=== PATIENT | female | born 1950 | race Caucasian/White ===

== ENCOUNTER 2019-04-29 08:04 | Day surgery (SDC) | payer BC ==
[~2019-04-29 08:04] MED LIST: ACETAMINOPHEN 1,000 MG/100 ML BTL IVPB ONE; FAMOTIDINE 20MG TABLET PO ONE; METOCLOPRAMIDE 10 MG TABLET PO ONE; SCOPOLAMINE 1 PATCH TDSY TD ONE
[2019-04-29] MEDS ORDERED: ONDANSETRON HCL IV 4 MG/2 ML VIAL IVP ONE (08:05)
[2019-04-29] MEDS ORDERED: KETOROLAC 30 MG/ML VIAL IVP ONE (08:05)
[2019-04-29] MEDS ORDERED: *PACU ONLY* KETAMINE HCL 10 MG/ML (20ML) VIAL IV ONE (08:05)
[2019-04-29] MEDS ORDERED: DEXAMETHASONE 4 MG/ML 1ML VIAL IVP ONE (08:05)
[2019-04-29] MEDS ORDERED: FENTANYL PF 100MCG/2ML VIAL IV ONE (08:05)
[2019-04-29] MEDS ORDERED: DIPHENHYDRAMINE HCL 50 MG/ML VIAL IVP ONE (08:05)
[2019-04-29] MEDS ORDERED: MIDAZOLAM HCL 2MG/2ML VIAL IV ONE (08:05)
[2019-04-29] MEDS ORDERED: PROPOFOL 10 MG/ML VIAL IV ONE (08:05)
[2019-04-29] MEDS ORDERED: RINGERS SOLUTION,LACTATED 1,000 ML IV ONE (08:50)
[2019-04-29] MEDS ORDERED: BUPIVACAINE 0.25% W/EPI MPF 30ML VIAL SQ ONE ×2 (09:52)
--- NOTE | 2019-04-30 06:01 | Operative Note ---
DATE OF SURGERY: 04/29/2019 SURGEON: Dave Foster DO PREOPERATIVE DIAGNOSIS: Back mass, 5 cm in size. POSTOPERATIVE DIAGNOSIS: Back mass, 5 cm in size. OPERATION: Wide excision of a back mass 5 cm into the subcu. PROCEDURE: The patient is a 68-year-old female who was brought to the operating room and placed in a supine position. She was rotated into left lateral position. Her back was prepped and draped in sterile fashion. Local with IV sedation was given per department of anesthesia. Thereafter, consent was signed and questions answered. The area around the mass was anesthetized with a total of 10 mL of 0.25% Sensorcaine with epinephrine. Prior to this, she did receive preoperative antibiotic as well as DVT prophylaxis. At this time, an elliptical incision was made around the mass incorporating the puncta. This was carried down to the subcutaneous tissues with cautery. The mass was then fully excised without rupture. This was a large sebaceous cyst. This did measure about 5 cm down to the subcu. The wound was then irrigated and placed a [place] drain due to the size. This was brought out through a separate stab incision. The wound was closed with 3-0 nylon in interrupted fashion. The patient was taken to the recovery room in stable condition. Final pathology pending. [facility]
== END 2019-04-29 11:05 | disposition home or self-care (01) ==
LOC: SUR 08:04
PROVIDERS: ATTEND Surgery
DX: L72.3 Sebaceous cyst (principal); I10 Essential (primary) hypertension; E78.00 Pure hypercholesterolemia, unspecified; E03.9 Hypothyroidism, unspecified; H18.51 Endothelial corneal dystrophy
CPT/HCPCS: 11406; 00300; 36416; 82948; J1885; J2405; J3010; J1200; J7120